=== PATIENT | male | born 1970 | race Caucasian/White ===

== ENCOUNTER 2016-12-26 07:44 | Day surgery (SDC) | payer BC ==
--- NOTE | 2016-12-26 08:30 | OR ---
Anesthesia Pre Procedure Eval Date of Service: 12/26/16 Pre Procedure Evaluation: Last Vital Signs Temp 36.4 C L 12/26/16 07:54 Pulse 69 12/26/16 07:54 Resp 13 12/26/16 07:54 BP 150/97 12/26/16 07:54 Pulse Ox 98 12/26/16 07:54 Anesthesia Pre Procedure Evaluation DATE: 12/26/2016 TIME: 10 13 INDICATIONS: Neck and radicular pain, spinal stenosis, status post cervical neck surgery PAST MEDICAL HISTORY: Mr. Bae has had a long history of neck and radicular pain. He's had a fusion of the cervical levels of C56 and C673 years ago with relatively good results. He has had intermittent episodes of neck pain with occasional radiation to the arms, described more as a dull ache at those times. He has had epidural steroid injections in the past with good relief however continues to have intermittent periods of the aforementioned pain. The episodes have increased as of the past 2 weeks to the point where he has not been sleeping. History of GERD: Yes, and this is treated. He had has antireflux medicine this morning. History of smoking: Yes Smoked prior to procedure: Yes Counseled on smoking day of procedure: Yes History of sleep apnea: No EXAM: Heart S1-S2 regular; lungs clear bilaterally ASSESSMENT OF MEDICAL STATUS: Appropriate candidate for epidural injection. PLANNED PROCEDURE: Cervical epidural steroid injection at C7-T1. Home Medications: HOME MEDICATIONS Hydrocodone/Ibuprofen [Vicoprofen 200-7.5 mg Tab] 1 each PO Q6H PRN 09/13/12 [ Last Taken 04/13/14] Famotidine [Pepcid] 20 mg PO DAILY 12/25/16 [Last Taken Unknown] Tadalafil [Cialis] 20 mg PO DAILY 12/25/16 [Last Taken Unknown]
[2016-12-26] MEDS ORDERED: IOPAMIDOL 20 ML VIAL IJ ONE ×4 (08:43→08:45)
[2016-12-26] MEDS ORDERED: DEXAMETHASONE SOD PHOSPHATE 10 MG/ML VIAL IJ ONE ×2 (08:43→08:45)
[2016-12-26] MEDS ORDERED: LIDOCAINE HCL/PF 5 ML VIAL IJ ONE ×3 (08:43→08:45)
--- NOTE | 2016-12-26 09:28 | OR ---
Anesthesia Procedure Note - Anesthesia Procedure Note Date of Service: 12/26/16 Narrative: Vital Signs - Last Taken Temp 36.4 C L 12/26/16 07:54 Pulse 71 12/26/16 09:05 Resp 18 12/26/16 09:05 BP 161/96 12/26/16 09:05 Pulse Ox 97 12/26/16 09:05 O2 Oxygen Delivery Method Room Air 12/26/16 09:19 ANESTHESIA PROCEDURE NOTE Date of Procedure: 12/26/2016 Time of procedure: 8:45 AM. Performed by: Akhil Geller CRNA, FAMILY COURT REGISTRAR, MSN Sterile Processing Technician: Jolynn Phillips RN. Preprocedure diagnosis: Neck and radicular pain, spinal stenosis, status post cervical surgery. Post procedure diagnosis: Same. Procedure: Epidural Steroid Injection C7-T1. Indications: Neck and radicular pain status post cervical surgery. Findings: See below. Details of the procedure: After the MRI report and films were reviewed the patient was interviewed, explaination of the procedure and risks was given. The patient was brought to or #4 and was placed in the prone position. The neck was prepped with DuraPrep and draped in a sterile fashion. The cervical area was identified under fluoroscopy and the C7-T1 space was localized with 1% lidocaine solution. The epidural space was identified using loss of resistance technique using a #20-gauge Touhy needle. Multiple readjustments under fluoroscopy were necessary due to occasional patient movement related to anxiety. Although Mr. Bae was quite anxious and did express that throughout , he was very cooperative and was able to describe sensations that are normally expected during this procedure. An oblique view was obtained and a quarter milliliter of Isovue was injected demonstrating position in the epidural space. The C-arm was then reoriented to an AP view and Isovue 200 0.5 milliliters was injected demonstrating a spread at the area. Dexamethasone 10mg and lidocaine 1% 2 mL was injected, stylette was replaced and the epidural needle removed. A Band-Aid was then applied to the injection site, patient was placed in a supposing position for 5 minutes then returned to ASU with good relief of pain, from 5/10 to 0/10. EBL: Minimal/negative. Energy: 35.7 Seconds, 9.18 mGy Fluids: N/A. Specimen: N/A. Post procedure condition: The patient tolerated the procedure well. No complications were noted. Thank you for this consultation. Akhil Geller CRNA, MSN, FAMILY COURT REGISTRAR
[2016-12-26 10:08] VITALS: BP 150/95
== END 2016-12-26 07:45 | disposition home or self-care (01) ==
LOC: AMB 07:44
PROVIDERS: ATTEND Nurse Practitioner
PROC: 3E0R33Z Introduction of Anti-inflammatory into Spinal Canal, Percutaneous Approach (ICD-10-PCS; 2016-12-26)
PROC: 3E0R3BZ Introduction of Anesthetic Agent into Spinal Canal, Percutaneous Approach (ICD-10-PCS; principal; 2016-12-26 08:30)
DX: M48.02 Spinal stenosis, cervical region (principal); Z68.38 Body mass index [BMI] 38.0-38.9, adult